=== PATIENT | male | born 1990 | race Caucasian/White ===

== ENCOUNTER 2018-05-27 09:57 | Emergency (ER) | payer BC, SELFPAY ==
[2018-05-27 10:00] VITALS: BP 121/65; PULSE 104; RESP 17; TEMP 37; O2SAT 99; BMI 20.8
[2018-05-27 10:08] VITALS: BP 121/65; PULSE 104
--- NOTE | 2018-05-27 10:11 | ED.DCSUM_ITS ---
- ER Visit Summary Date of Service: 05/27/18 Chief Complaint: Sore throat History of Present Illness: The patient is a 27 M with a sore throat. Symptoms started gradually over the past 3 days. Worse on the left side, but he does have pain bilaterally. Nothing makes it better or worse. Associated with fe vers. No trouble breathing, talking, or swallowing. His daughter tested positive for strep pharyngitis. Physical Examination: Afebrile and vital signs unremarkable. Alert and oriented. HEENT exam unremarkable except for bilateral tonsillar exudates. Airway intact. No stridor. No lymphadenopathy. Good range of motion of his neck. Skin appears normal. Test Results: None Emergency Department Course and Treatment: Given his symptoms and exposure, the patient will be treated with Pen-Vee K. Use qyzu-rba-gtcwauv remedies for pain and fever. Return for any new or worsening issues. Treatment Plan: As above Disposition: Discharge Impression: 1. Strep pharyngitis This note was generated with [employer] dictation software. It may contain incorrect words, spelling, and punctuation that were not noted in review of the chart prior to signing ED Disposition - Plan for ED Patient: Chief Complaint: Sore Throat Referrals: Rajeev Barrera MD [Primary Care Provider] -
--- NOTE | 2018-05-27 10:11 | ED.DEP ---
ED Disposition - Plan for ED Patient: Chief Complaint: Sore Throat Instructions: ED Strep Pharyngitis Poss Prescriptions: Penicillin V Potassium 500 mg PO BID #20 tab Referrals: Rajeev Barrera MD [Primary Care Provider] -
[2018-05-27 10:19] VITALS: TEMP 37
--- OUTSIDE RECORDS SUMMARY | 2018-08-28 14:47 | XMS RPT_ITS ---
:1990 Author Organization [facility] Care Team Providers Name Role Phone Benedict Rahman Attending Unavailable BENJI LEGER Primary Care Unavailable PROBLEMS PROBLEMS No Problem Records FoundPROCEDURES PROCEDURES No Procedure Records FoundRESULTS RESULTS EMERGENCY DEPARTMENT Observed: 05/27/2018 Status: F Source: INDUSTRY SUMMARY 3:42 PM [facility] REPOSITORY [facility] Medical Records Department [address] [place] [address] Emergency Department Summary 05/27/18 1009 MR#: [id number] Acct: [id number] Name: HUE BAILEY Rep #: [id number] : 1990 27 From: Benedict Rahman MD PCP: Mp Barrera MD Status: DEP ER - ER Visit Summary Date of Service: 05/27/18 Chief Complaint: Sore throat History of Present Illness: The patient is a 27 M with a sore throat. Symptoms started gradually over the past 3 days. Worse on the left side, but he does have pain bilaterally. Nothing makes it better or worse. Associated with fevers. No trouble breathing, talking, or swallowing. His daughter tested positive for strep pharyngitis. Physical Examination: Afebrile and vital signs unremarkable. Alert and oriented. HEENT exam unremarkable except for bilateral tonsillar exudates. Airway intact. No stridor. No lymphadenopathy. Good range of motion of his neck. Skin appears normal. Test Results: None Emergency Department Course and Treatment: Given his symptoms and exposure, the patient will be treated with Pen-Vee K. Use wmzm-syx-toojfpy remedies for pain and fever. Return for any new or worsening issues. Treatment Plan: As above Disposition: Discharge Impression: 1. Strep pharyngitis This note was generated with [employer] software. It may contain incorrect words, spelling, and punctuation that were not noted in review of the chart prior to signing ED Disposition - Plan for ED Patient: Chief Complaint: Sore Throat Referrals: Rajeev Barrera MD [Primary Care Provider] - What to do if you have Problems For any increased pain, shortness of breath, bleeding, nausea or vomiting, chest pain, or any unexpected problems, contact your Primary Care Provider. Call [facility] ([phone]) or report to the closest Emergency Room. Call 911 if necessary. 05/27/181541 <Electronically signed by Benedict Rahman MD> Date Benedict Rahman MD Cosigner Signature (If Indicated): Date CC: Mp Barrera MD; OUT OF TOWN DOCTOR DISCHARGE INSTRUCTION Observed: 05/27/2018 Status: F Source: INDUSTRY 3:42 PM [facility] REPOSITORY [facility] Medical Records Department [address] [place] [id number] Discharge Instruction 05/27/18 1011 MR#: [id number] Acct: [id number] Name: HUE BAILEY Rep #: [id number] : 1990 27 From: Benedict Rahman MD PCP: Mp Barrera MD Status: DEP ER ED Disposition - Plan for ED Patient: Chief Complaint: Sore Throat Instructions: ED Strep Pharyngitis Poss Prescriptions: Penicillin V Potassium 500 mg PO BID #20 tab Referrals: Rajeev Barrera MD [Primary Care Provider] - What to do if you have Problems For any increased pain, shortness of breath, bleeding, nausea or vomiting, chest pain, or any unexpected problems, contact your Primary Care Provider. Call [facility] ([phone]) or report to the closest Emergency Room. Call 911 if necessary. 05/27/18 1542 <Electronically signed by Benedict Rahman MD> Date Benedict Jasso Signature (If Indicated): Date CC: Mp Barrera MD; OUT OF TOWN DOCTOR ALLERGIES ALLERGIES DATE TYPE / CODE NAME / CODE REACTION SEVERITY SOURCE 05/27/2018 Drug No Known Unknown [facility] Allergy/4160 Allergies/F00 Hospital 99229(SNOMED [id number](RXNOR Repository CT) M) ENCOUNTERS ENCOUNTERS ADMIT/DISCHARGE ACCOUNT ADMITTING ENCOUNTER LOCATION SOURCE NUMBER CLASS 05/27/2018/ [id number] Emergency [address]iscilla [address] ing:ED Repository PAYERS PAYERS ENCOUNTER GUARANTOR PAYER SUBSCRIBER SOURCE 05/27/2018 HUE [id number] [facility] Priscilla TACOMA Insurance:[id number] Number: [facility] [address]Koo: ([phone]) [id number] Repository [phone] () Date:[id number] [address], [place] [address]PO: 05/27/2018 Secondary NOT GIVENUNK [place] Insurance:SELF PAY [facility] Number: Effective Repository Date:2018-05-27
== END 2018-05-27 11:15 | disposition home or self-care (01) ==
LOC: ED 10:39
PROVIDERS: Emergency Provider Emergency Medicine; PCP Family Medicine
DX: J02.0 Streptococcal pharyngitis (principal)
CPT/HCPCS: 99282